=== PATIENT | male | born 1985 | race Hispanic/Latino ===

== ENCOUNTER → 2018-04-10 | Outpatient (CLI) | payer BC ==
[~2018-04-10] MED LIST: PROCARDIA XL90 MG PO
--- NOTE | 2018-04-10 17:57 | Diagnostic Imaging Report ---
EXAM: CT Abdomen and Pelvis WITHOUT contrast INDICATION: Renal colic. COMPARISON: 08/19/2013. TECHNIQUE: Abdomen and pelvis were scanned utilizing a multidetector helical scanner from the lung base to the pubic symphysis without administration of IV contrast. Absence of intravenous contrast decreases sensitivity for detection of focal lesions and vascular pathology. Coronal and sagittal reformations were obtained. Routine protocol was performed. IV CONTRAST: None. ORAL CONTRAST: Water RADIATION DOSE: Total DLP: 817.61 mGy*cm Estimated effective dose: (DLP x 0.015 x size factor) mSv COMPLICATIONS: None FINDINGS: LINES and TUBES: None. LOWER THORAX: Unremarkable HEPATOBILIARY: No focal hepatic lesions. No biliary ductal dilation. GALLBLADDER: No radio-opaque stones or sludge. No wall thickening. SPLEEN: No splenomegaly. PANCREAS: No focal masses or ductal dilatation. ADRENALS: No adrenal nodules KIDNEYS/URETERS: No hydronephrosis. No cystic or solid mass lesions. There is a 2 mm and a punctate calculi in the upper pole of the right kidney on image 61 series 2. There is a 5 x 9 mm obstructing calculus in the mid to distal right ureter on coronal image 57 resulting in mild right hydroureteronephrosis. There are no left renal calculi GI TRACT: No abnormal distention, wall thickening, or evidence of bowel obstruction. Appendix is surgically absent. PELVIC ORGANS/BLADDER: Unremarkable. LYMPH NODES: No lymphadenopathy. VESSELS: Unremarkable. PERITONEUM / RETROPERITONEUM: No free air or fluid. BONES: Small sclerotic lesions scattered throughout the pelvic bones consistent with bone islands. No acute osseous abnormality. SOFT TISSUES: Small fat-containing left inguinal hernia. IMPRESSION: 1. 9 mm mm obstructing calculus in the mid to distal right ureter resulting in mild right hydroureteronephrosis. Discussed with Dr. Sullivan at 5:50 PM on 02/08/18. 2. Punctate calculi in the upper pole of the right kidney. Signed by: Dr. Fidencio Merritt M.D. on 04/10/2018 5:54 PM
== END ==
LOC: CT 15:16
PROVIDERS: ATTEND Family Medicine
DX: N20.2 Calculus of kidney with calculus of ureter (principal)
CPT/HCPCS: 74176

== ENCOUNTER 2018-04-26 23:21 | Emergency (ER) | payer BC ==
[~2018-04-26] VITALS: Ht 188 cm; Wt 113.4 kg
[2018-04-26] MEDS ORDERED: ONDANSETRON HCL INJ 2 MG/ML VIAL IV STA (23:52)
[2018-04-26] MEDS ORDERED: HYDROMORPHONE 1MG/1ML INJ IV STA (23:52)
[2018-04-27] LABS: BASOPHILS # (AUTO) 0.1 (0.0-0.1); BASOPHILS % 0.6 % (0.0-1.0); EOSINOPHILS # (AUTO) 0.1 (0.0-0.4); EOSINOPHILS % 0.5 % (0.0-6.0); HEMATOCRIT 43.8 % (38.2-49.6); HEMOGLOBIN 15.3 g/dL (14.0-18.0); LYMPHOCYTES # (AUTO) 2.3 (1.0-3.2); LYMPHOCYTES % 13.1 % (18.0-39.1); MEAN CORPUSCULAR HEMOGLOBIN 30.3 pg (28-32); MEAN CORPUSCULAR HGB CONC 34.9 g/dL (31-35); MEAN CORPUSCULAR VOLUME 86.7 fL (81-99); MONOCYTES # (AUTO) 1.5 (0.2-0.8); MONOCYTES % 8.4 % (4.4-11.3); NEUTROPHILS # (AUTO) 13.3 (2.1-6.9); NEUTROPHILS % 77.1 % (38.7-80.0); PLATELET COUNT 300 x10e3/uL (140-360); RED BLOOD COUNT 5.05 x10e6/uL (4.3-5.7); RED CELL DISTRIBUTION WIDTH 12.3 % (11.7-14.4)
[2018-04-27] MEDS ORDERED: SODIUM CHLORIDE 0.9% 500ML 500 ML IV ONE
[2018-04-27 00:04] LABS: INR 1.02; PROTHROMBIN TIME 12.6 seconds (11.9-14.5)
[2018-04-27 00:05] LABS: PARTIAL THROMBOPLASTIN TIME 25.9 seconds (23.8-35.5)
[2018-04-27 00:14] LABS: ALBUMIN 4.8 g/dL (3.5-5.0); ALBUMIN/GLOBULIN RATIO 1.4 (0.8-2.0); ANION GAP 16.9 mmol/L (8-16); CALCIUM 9.6 mg/dL (8.4-10.2); CREATININE, SERUM 1.39 mg/dL (0.72-1.25); MAGNESIUM 1.9 MG/DL (1.3-2.1); POTASSIUM 3.9 mmol/L (3.5-5.1)
--- NOTE | 2018-04-27 00:48 | Diagnostic Imaging Report ---
EXAM: CT ABDOMEN AND PELVIS without IV CONTRAST INDICATION: Right flank pain COMPARISON: CT of the abdomen and pelvis April 10, 2018 TECHNIQUE: The abdomen and pelvis were scanned using a multidetector helical scanner. Coronal and sagittal reformations were obtained. Renal stone protocol performed. IV Contrast: None Oral Contrast: None CTDIvol has been reviewed. It is below the limits set by the Radiation Protocol Committee (RPC). FINDINGS: LOWER THORAX: No consolidations LIVER: No masses BILIARY: Normal gallbladder. No ductal dilation. SPLEEN: No masses PANCREAS: No masses ADRENALS: No nodules RIGHT KIDNEY: Stable position of 5x9 mm stone in the right mid ureter at the L4 level. Stable mild hydronephrosis. Interval increased perinephric fat stranding. Additional 1 and 2 mm stones in the superior pole. LEFT KIDNEY: No nephroureterolithiasis or hydronephrosis. GI TRACT: No wall thickening or obstruction. Appendectomy. VESSELS: None PERITONEUM/RETROPERITONEUM: No free air or fluid LYMPH NODES: No lymphadenopathy REPRODUCTIVE ORGANS: Normal BLADDER: Normal SOFT TISSUES: Normal BONES: No suspicious bone lesions. IMPRESSION: Persistent stone in the mid right ureter with stable mild hydroureteronephrosis. Slight interval increase in right perinephric fat stranding. Signed by: Dr. Karuna Heath M.D. on 04/27/2018 12:45 AM
[2018-04-27 02:01] LABS: BILIRUBIN,URINE NEGATIVE (NEGATIVE); CLARITY,URINE CLEAR (CLEAR); COLOR,URINE YELLOW (YELLOW); KETONES,URINE NEGATIVE (NEGATIVE); LEUKOCYTE ESTERASE ,URINE NEGATIVE (NEGATIVE); NITRITE,URINE NEGATIVE (NEGATIVE); PROTEIN,URINE DIPSTICK NEGATIVE (NEGATIVE); URINE UROBILINOGEN 0.2 mg/dL (0.2 - 1); WBC,URINE (MAN) 0-5 /HPF (0-5)
[2018-04-27 02:02] LABS: EPITHELIAL CELLS,URINE FEW /LPF
[2018-04-29] MEDS ORDERED: CARDIA PO (06:24)
== END 2018-04-27 02:26 | disposition home or self-care (01) ==
LOC: ER 23:21
DX: R10.9 Unspecified abdominal pain (principal); R11.0 Nausea; N20.1 Calculus of ureter
CPT/HCPCS: 36415; 74176; 80053; 81001; 83735; 85025; 85610; 85730; 87086; 96374; 99284; J1170; J2405; J7040

== ENCOUNTER → 2018-04-29 | Day surgery (SDC) | payer BC ==
[~2018-04-29] MED LIST changes: +CARDIA PO; +CARTIA XT300 MG PO; +CEFTRIAXONE SOD 1 GM VIAL ONE; +DEXAMETHASONE SOD PHOS INJ 4 MG/ML VIAL ONE; +FENTANYL CITRATE/PF 100MCG/2 ML INJ ONE; +IOPAMIDOL 300MG/ML 50ML INFUS..BTL IV ONE; +LIDOCAINE HCL 2% LOCAL INJ 5 ML SDV VIAL INJ ONE; +MIDAZOLAM HCL 2 MG/2 ML VIAL ONE; +ONDANSETRON HCL INJ 2 MG/ML VIAL ONE; +PROPOFOL IV EMULSION 10 MG/ML 20 ML VIAL ONE; +SEVOFLURANE INHAL SOLN 250 ML PEN BTL ONE
--- NOTE | 2018-04-29 08:20 | Diagnostic Imaging Report ---
Exam: Radiographs of the abdomen 2 views Comparison: CT Abdomen 04/27/18. Findings: An 8 mm calcification overlies the expected location of the right mid ureter. Punctate 1-2 mm stones overlie the right kidney, although partially obscured by overlying bowel gas. Phlebolith is present in the pelvis. There is a nonobstructive bowel gas pattern. There is no free intraperitoneal air. The bony structures are unremarkable. Impression: Similar appearance of right ureteral stone and right sided renal stones compared to CT on 04/27/18. Signed by: Dr. Karuna Díaz MD on 04/29/2018 8:17 AM
--- NOTE | 2018-06-18 14:58 | Operative Report ---
DATE OF PROCEDURE: April 29, 2018 PREOPERATIVE DIAGNOSES 1. Right ureterolithiasis. 2. Microhematuria. POSTOPERATIVE DIAGNOSES 1. Right ureterolithiasis. 2. Microhematuria. OPERATIONS PERFORMED 1. Cystourethroscopy with bilateral ureteral catheterization and retrograde ureteropyelography (separate procedure performed for the microscopic hematuria). 2. Interpretation retrograde ureteropyelography. 3. Supervision of fluoroscopy. No radiologist present. 4. Right ureteroscopy with Holmium laser lithotripsy and insertion of stent (separate procedure performed for the diagnosis of stone done with separate scope). 5. Radiological services for supervision and interpretation of ureteroscopy. ANESTHESIA: General. COMPLICATIONS: None. CLINICAL SUMMARY: Darvin Bell is a 33-year-old man who has right ureterolithiasis. He had renal colic that required an emergency room visit. The patient has right hydroureteronephrosis and has failed to pass his stone at stone passage trial. He also has a punctate left kidney stone and a small right kidney stone. He is brought to the operating room to manage his obstructing stone. He is aware of the risks of bleeding, infection, injury to adjacent structures, need for additional procedures, and elected to proceed. OPERATIVE PROCEDURE IN DETAIL: Informed consent was verified. Darvin Hall was properly identified and taken to the operating room and placed on the cystoscopy table in the supine position. Anesthesia was uneventfully begun. The patient was then carefully and gently repositioned in the dorsal lithotomy position with all pressure points well-padded. His genitalia were prepared and draped in the usual sterile fashion. The 22.5-Montenegrin cystoscope sheath with visual obturator in place was atraumatically and inserted in the patient's urethra and guided down the unremarkable urethra passed a normal sphincteric bed through the normal prostate bed and into the patient's bladder. Panendoscopy revealed normally positioned configured ureteral orifices. There were no tumors. No stones. No diverticula. No suspicious lesions were noted. A ureteral catheter was used to cannulate the left ureter and retrograde ureteropyelograms were performed. It was then inserted in the right ureter and retrograde ureteropyelograms were performed. A guidewire was then introduced into the right ureter and guided to the level of the patient's kidney. Semi-rigid ureteroscope was then inserted alongside the guidewire into the level of the stone. Holmium laser lithotripsy was performed in order to fragment the stone. Basket was then utilized to extract stone remnants. Under cystoscopic and fluoroscopic guidance, a right-sided indwelling ureteral stent was then placed. It was coiled in the patient's kidney, as well as the patient's bladder. The retaining suture was cut short. Interpretation of retrograde ureteropyelography. Contrast was instilled in a retrograde fashion bilaterally. On the left hand side, there were no tumors. I could not visualize the punctate left kidney stone. On the right hand side, there was hydroureteronephrosis down to the level of the stone. The stent was in good position. Coiled in the patient's kidney, as well as the patient's bladder at the end of the case. The patient's bladder was then drained. Cystoscope was withdrawn. Digital rectal examination revealed a 15 g prostate smooth and nonfluctuant and without any nodules. Patient was uneventfully reversed from anesthesia and taken to the recovery room in stable condition. There were no complications with the procedure. He tolerated the procedure well. Explicit postop instructions were given. Will plan on returning the patient back to the operating room in several weeks to remove his stent, perform a right ureteroscopy, and hopefully render the patient stone-free and stent-free. Job#: [id number] RI cc:JOSÉ LUIS HADDAD MD
--- OUTSIDE RECORDS SUMMARY | 2018-06-20 01:20 | XMS REPORT | Continuity of Care Document ---
Author Author [facility] Organization [facility] Address [address] [place] [address] Phone Unavailable Care Team Providers Care Online Communications Specialist Name Role Phone JOSÉ LUIS HADDAD PCP Insurance Providers Guarantor Darvin Bell Address [address] [place] [address] Email [email or web address] [facility] Policy Number [id number] Subscriber's Name Darvin Bell Relationship 18 Self / Same As Patient Group Number [id number] Group Name [employer] [facility] Effective Date 12 Advance Directives Directive Response Recorded Date/Time Does the patient have an advance directive? No 02/22/09 7:01pm If yes, is advance directive on file with [facility]? No 02/22/09 7:01pm If not on file with [facility] will patient provide a copy? No 02/29/12 5:33pm Problems No problem information available. Medications Current Home Medications Medication Dose Units Route Directions Days Qty Instructions Start Date Nifedipine (Procardia Xl) 90 Mg Tab.er.24 200 Mg Oral Rt Daily Social History Smoking Status Start Date Stop Date Never Smoker Hospital Discharge Instructions No hospital discharge instruction information available. Plan of Care Discharge Date 04/27/18 2:26am Disposition HOME, SELF-CARE Condition at Discharge Stable Instructions/Education Provided Back Pain Kidney Stones Forms Provided Work/School Excuse Prescriptions See Medication Section Referrals LILI BLANCA MD Address: [address] [place] [address] Additional Instructions/Education continue with your meds pain meds, and flomax. at home, NPO after midnight one Sunday got stent placement on Sunday. Functional Status No functional status information available. Allergies, Adverse Reactions, Alerts No known allergies. Immunizations No immunization information available. Vital Signs Acute Vital Signs Vital Response Date/Time Temperature (Fahrenheit) 98.5 degrees F (97.6 - 99.5) 04/27/2018 2:23am Height 6 ft 2 in 04/26/2018 11:40pm Weight 250 lb 04/26/2018 11:40pm Body Mass Index 32.1 kg/m^2 04/26/2018 11:40pm Results Laboratory Results Test Name Result Units Flags Reference Collection Date/Time Result Date/ Time Comments White Blood Count 17.28 x10e3/uL H 4.8-10.8 04/26/2018 11:45pm 2017 12:01am Red Blood Count 5.05 x10e6/uL 4.3-5.7 04/26/2018 11:45pm 04/27/2018 12: 01am Hemoglobin 15.3 g/dL 14.0-18.0 04/26/2018 11:45pm 04/27/2018 12:01am Hematocrit 43.8 % 38.2-49.6 04/26/2018 11:45pm 04/27/2018 12:01am Mean Corpuscular Volume 86.7 fL 81-99 04/26/2018 11:45pm 04/27/2018 12: 01am Mean Corpuscular Hemoglobin 30.3 pg 28-32 04/26/2018 11:45pm 2017 12:01am Mean Corpuscular Hemoglobin Concent 34.9 g/dL 31-35 04/26/2018 11:45pm 04/27/2018 12:01am Red Cell Distribution Width 12.3 % 11.7-14.4 04/26/2018 11:45pm 2017 12:01am Platelet Count 300 x10e3/uL 140-360 04/26/2018 11:45pm 04/27/2018 12: 01am Neutrophils (%) (Auto) 77.1 % 38.7-80.0 04/26/2018 11:45pm 04/27/2018 12:01am Lymphocytes (%) (Auto) 13.1 % L 18.0-39.1 04/26/2018 11:45pm 04/27/2018 12:01am Monocytes (%) (Auto) 8.4 % 4.4-11.3 04/26/2018 11:45pm 04/27/2018 12: 01am Eosinophils (%) (Auto) 0.5 % 0.0-6.0 04/26/2018 11:45pm 04/27/2018 12: 01am Basophils (%) (Auto) 0.6 % 0.0-1.0 04/26/2018 11:45pm 04/27/2018 12: 01am IM GRANULOCYTES % 0.3 % 0.0-1.0 04/26/2018 11:45pm 04/27/2018 12:01am Neutrophils # (Auto) 13.3 H 2.1-6.9 04/26/2018 11:45pm 04/27/2018 12: 01am Lymphocytes # (Auto) 2.3 1.0-3.2 04/26/2018 11:45pm 04/27/2018 12: 01am Monocytes # (Auto) 1.5 H 0.2-0.8 04/26/2018 11:45pm 04/27/2018 12: 01am Eosinophils # (Auto) 0.1 0.0-0.4 04/26/2018 11:45pm 04/27/2018 12: 01am Basophils # (Auto) 0.1 0.0-0.1 04/26/2018 11:45pm 04/27/2018 12:01am Absolute Immature Granulocyte (auto 0.06 x10e3/uL 0-0.1 04/26/2018 11: 45pm 04/27/2018 12:01am Prothrombin Time 12.6 seconds 11.9-14.5 04/26/2018 11:45pm 04/27/2018 12:23am Prothromb Time International Ratio 1.02 04/26/2018 11:45pm 2017 12:23am Oral Anticoagulant Therapy INR Values: 1. Low Intensity Therapy 1.5 - 2.0 2. Moderate Intensity Therapy 2.0 - 3.0 3. High Intensity Therapy(1) 2.5 - 3.5 4. High Intensity Therapy(2) 3.0 - 4.0 5. Panic Value INR > 5.0 Activated Partial Thromboplast Time 25.9 seconds 23.8-35.5 04/26/2018 11 :45pm 04/27/2018 12:23am Urine Color YELLOW YELLOW 04/27/2018 1:45am 04/27/2018 2:02am Urine Clarity CLEAR CLEAR 04/27/2018 1:45am 04/27/2018 2:02am Urine Specific [place] 1.020 1.010-1.025 04/27/2018 1:45am 2017 2:02am Urine pH 6 5 - 7 04/27/2018 1:45am 04/27/2018 2:02am Urine Leukocyte Esterase NEGATIVE NEGATIVE 04/27/2018 1:45am 2017 2:02am Urine Nitrite NEGATIVE NEGATIVE 04/27/2018 1:45am 04/27/2018 2:02am Urine Protein NEGATIVE NEGATIVE 04/27/2018 1:45am 04/27/2018 2:02am Urine Glucose (UA) NEGATIVE NEGATIVE 04/27/2018 1:45am 04/27/2018 2: 02am Urine Ketones NEGATIVE NEGATIVE 04/27/2018 1:45am 04/27/2018 2:02am Urine Urobilinogen 0.2 mg/dL 0.2 - 1 04/27/2018 1:45am 04/27/2018 2: 02am Urine Bilirubin NEGATIVE NEGATIVE 04/27/2018 1:45am 04/27/2018 2: 02am Urine Blood 2+ H NEGATIVE 04/27/2018 1:45am 04/27/2018 2:02am Urine WBC 0-5 /HPF 0-5 04/27/2018 1:45am 04/27/2018 2:02am Urine RBC 6-10 /HPF H 0-5 04/27/2018 1:45am 04/27/2018 2:02am Urine Bacteria NONE /HPF NONE 04/27/2018 1:45am 04/27/2018 2:02am Urine Epithelial Cells FEW /LPF NONE 04/27/2018 1:45am 04/27/2018 2: 02am Sodium Level 142 mmol/L 136-145 04/26/2018 11:45pm 04/27/2018 12:24am Potassium Level 3.9 mmol/L 3.5-5.1 04/26/2018 11:45pm 04/27/2018 12: 24am Chloride Level 106 mmol/L 98-107 04/26/2018 11:45pm 04/27/2018 12:24am Carbon Dioxide Level 23 mmol/L 22-29 04/26/2018 11:45pm 04/27/2018 12: 24am Anion Gap 16.9 mmol/L H 8-16 04/26/2018 11:45pm 04/27/2018 12:24am Blood Urea Nitrogen 16 mg/dL 7-26 04/26/2018 11:45pm 04/27/2018 12: 24am Creatinine 1.39 mg/dL H 0.72-1.25 04/26/2018 11:45pm 04/27/2018 12:24am BUN/Creatinine Ratio 12 6-25 04/26/2018 11:45pm 04/27/2018 12:24am Estimat Glomerular Filtration Rate 59 ML/MIN L 60- 04/26/2018 11:45pm 12:24am Ranges were taken from the National Kidney Disease Education Program and the National Kidney Foundation literature. Reference ranges: 60 or greater: Normal 16-59 (for 3 consecutive months): Chronic kidney disease 15 or less: Kidney failure Glucose Level 128 mg/dL H 74-118 04/26/2018 11:45pm 04/27/2018 12:24am Calcium Level 9.6 mg/dL 8.4-10.2 04/26/2018 11:45pm 04/27/2018 12:24am Magnesium Level 1.9 MG/DL 1.3-2.1 04/26/2018 11:45pm 04/27/2018 12: 24am Total Bilirubin 0.7 mg/dL 0.2-1.2 04/26/2018 11:45pm 04/27/2018 12: 24am Aspartate Amino Transf (AST/SGOT) 27 IU/L 5-34 04/26/2018 11:45pm 04/27 12:24am Alanine Aminotransferase (ALT/SGPT) 43 IU/L 0-55 04/26/2018 11:45pm 07/2018 12:24am Total Protein 8.2 g/dL H 6.5-8.1 04/26/2018 11:45pm 04/27/2018 12:24am Albumin 4.8 g/dL 3.5-5.0 04/26/2018 11:45pm 04/27/2018 12:24am Globulin 3.4 g/dL 2.3-3.5 04/26/2018 11:45pm 04/27/2018 12:24am Albumin/Globulin Ratio 1.4 0.8-2.0 04/26/2018 11:45pm 04/27/2018 12: 24am Alkaline Phosphatase 122 IU/L 40-150 04/26/2018 11:45pm 04/27/2018 12: 24am Procedures Procedure Status Date Provider(s) CT of abdomen and pelvis without contrast Active 04/10/[address] of abdomen and pelvis without contrast Active 04/27/18 SEFERINO HARTMAN MD Encounters Encounter Location Arrival/Admit Date Discharge/Depart Date Attending Provider Registered Emergency Room [facility] 04/26/18 11:21pm SEFERINO HARTMAN MD Registered Clinic [facility] 04/10/18 3:16pm JOSÉ LUIS HADDAD
== END | disposition home or self-care (01) ==
LOC: OR 05:12
PROVIDERS: ATTEND Urology
DX: N20.1 Calculus of ureter (principal); N20.0 Calculus of kidney; N13.30 Unspecified hydronephrosis; I10 Essential (primary) hypertension; Z01.810 Encounter for preprocedural cardiovascular examination; Z01.812 Encounter for preprocedural laboratory examination; Z68.32 Body mass index [BMI] 32.0-32.9, adult
CPT/HCPCS: 52356; 74420; 83970 ×2; 88300; 93005; C2617; J0696; J1100; J2001; J2250; J2405; Q9967; 74018

== ENCOUNTER 2018-06-14 14:24 | Observation (INO) | payer BC ==
[~2018-06-14] VITALS: Ht 188 cm; Wt 110.2 kg
[~2018-06-14 14:24] MED LIST changes: -CEFTRIAXONE SOD 1 GM VIAL ONE; -DEXAMETHASONE SOD PHOS INJ 4 MG/ML VIAL IV ONE; -FENTANYL CITRATE/PF 100MCG/2 ML INJ ONE; -IOPAMIDOL 610MG/1ML 300 MG/ML VIAL IV ONE; -LIDOCAINE HCL 2% LOCAL INJ 5 ML SDV VIAL INJ ONE; -MIDAZOLAM HCL 2 MG/2 ML VIAL ONE; -ONDANSETRON HCL INJ 2 MG/ML VIAL IV ONE; -PROPOFOL IV EMULSION 10 MG/ML 20 ML VIAL IV ONE; -SEVOFLURANE INHAL SOLN 250 ML PEN BTL INH ONE
[2018-06-14] MEDS ORDERED: ONDANSETRON HCL INJ 2 MG/ML VIAL IV STA (14:55)
[2018-06-14] MEDS ORDERED: SODIUM CHLORIDE 0.9% 1000ML 1,000 ML IV SCH (15:00)
[2018-06-14] MEDS ORDERED: MORPHINE SULFATE 5 MG/ML VIAL IV ONE (15:00)
[2018-06-14 15:02] LABS: CLARITY,URINE CLOUDY (CLEAR); COLOR,URINE AMBER (YELLOW)
[2018-06-14 15:03] LABS: BILIRUBIN,URINE NEGATIVE (NEGATIVE); KETONES,URINE NEGATIVE (NEGATIVE); LEUKOCYTE ESTERASE ,URINE NEGATIVE (NEGATIVE); NITRITE,URINE NEGATIVE (NEGATIVE); PROTEIN,URINE DIPSTICK 2+ (NEGATIVE); URINE UROBILINOGEN 0.2 mg/dL (0.2 - 1)
[2018-06-14] MEDS ORDERED: MORPHINE SULFATE 2 MG/ML SYR IV NR (15:04)
[2018-06-14 15:14] LABS: RBC,URINE >50 /HPF (0-5)
[2018-06-14 15:19] LABS: BASOPHILS % 0.4 % (0.0-1.0); HEMATOCRIT 42.9 % (38.2-49.6); HEMOGLOBIN 14.7 g/dL (14.0-18.0); LYMPHOCYTES # (AUTO) 0.5 (1.0-3.2); LYMPHOCYTES % 4.8 % (18.0-39.1); MEAN CORPUSCULAR HEMOGLOBIN 30.2 pg (28-32); MEAN CORPUSCULAR HGB CONC 34.3 g/dL (31-35); MEAN CORPUSCULAR VOLUME 88.1 fL (81-99); MONOCYTES # (AUTO) 0.1 (0.2-0.8); MONOCYTES % 1.1 % (4.4-11.3); NEUTROPHILS # (AUTO) 10.6 (2.1-6.9); NEUTROPHILS % 93.3 % (38.7-80.0); PLATELET COUNT 327 x10e3/uL (140-360); RED BLOOD COUNT 4.87 x10e6/uL (4.3-5.7); RED CELL DISTRIBUTION WIDTH 11.9 % (11.7-14.4)
--- NOTE | 2018-06-14 15:29 | Diagnostic Imaging Report ---
Exam: Abdominal film Clinical History: Pain after stent removal Comparison: None. DISCUSSION: Prominent loop of small bowel within the right mid abdomen may reflect ileus. No dilated, air-filled loops of bowel. Punctate calcification right L3-L4 not previously seen. Prior right stent removal. IMPRESSION: Prominent loop of small bowel within the right mid abdomen may reflect ileus. Punctate calcification right of L3-L4 not previously seen. However, appears slightly lateral to the position of the right ureteral stent. Signed by: Dr. Jesus Rosario M.D. on 06/14/2018 3:26 PM
[2018-06-14 15:37] LABS: ALANINE AMINOTRANSFERASE 80 IU/L (0-55); ALBUMIN 4.7 g/dL (3.5-5.0); ALBUMIN/GLOBULIN RATIO 1.2 (0.8-2.0); ALKALINE PHOSPHATASE 137 IU/L (40-150); ANION GAP 16.2 mmol/L (8-16); BLOOD UREA NITROGEN 15 mg/dL (7-26); BUN/CREATININE RATIO 15 (6-25); CARBON DIOXIDE 24 mmol/L (22-29); CHLORIDE 103 mmol/L (98-107); CREATININE, SERUM 1.03 mg/dL (0.72-1.25); EST GLOMERULAR FILTRATION RATE > 60 ML/MIN (60-); GLUCOSE 135 mg/dL (74-118); POTASSIUM 4.2 mmol/L (3.5-5.1); SODIUM 139 mmol/L (136-145)
[2018-06-14] MEDS ORDERED: MORPHINE SULFATE 2 MG/ML SYR IV PRN (16:15)
[2018-06-14] MEDS ORDERED: ONDANSETRON HCL INJ 2 MG/ML VIAL IV PRN (16:15)
[2018-06-14] MEDS ORDERED: ACETAMINOPHEN/CODEINE 300MG - 30MG TAB PO PRN (18:00)
[2018-06-14] MEDS ORDERED: HYDROMORPHONE 2MG/ML 2 MG/ML ML IV NR (18:15)
[2018-06-14] MEDS: SODIUM CHLORIDE 0.9% 1000ML 1,000 ML IV SCH (19:34)
[2018-06-14] MEDS ORDERED: DILTIAZEM HCL ER 120 MG CAPCR PO SCH (21:00)
[2018-06-14] MEDS ORDERED: DILTIAZEM HCL 180 MG CAP ER PO SCH (21:00)
[2018-06-14 23:35] VITALS: BP 121/62
[2018-06-14 23:45] VITALS: BP 121/62
[2018-06-15] MEDS: SODIUM CHLORIDE 0.9% 1000ML 1,000 ML IV SCH (04:35)
[2018-06-15 05:15] VITALS: BP 118/56
--- NOTE | 2018-06-15 06:41 | Diagnostic Imaging Report ---
EXAM: ABDOMEN-1VIEW (KUB), supine INDICATION: Kidney stones COMPARISON: None FINDINGS: LINES/TUBES: None BOWEL PATTERN: No evidence for obstruction. SOFT TISSUES: No abnormal calcifications. LUNG BASES: Not included BONES: No acute findings. IMPRESSION: No radiographic evidence of a renal stone. Signed by: Dr. Karuna Heath M.D. on 06/15/2018 6:38 AM
[2018-06-15 08:05] VITALS: BP 122/56
[2018-06-15 12:12] VITALS: BP 152/89
--- NOTE | 2018-06-15 13:23 | Discharge Summary ---
PRIMARY CARE DOCTOR: Dr. José Luis Haddad. FINAL DIAGNOSIS: Nephrolithiasis. SECONDARY DIAGNOSIS: Hypertension. CONSULTANTS: None. PROCEDURES/STUDIES PERFORMED: KUB. HISTORY: Per H and P. HOSPITAL COURSE: Patient was admitted; however, he thinks in the emergency room, he passed the stone. Patient has been pain free on the date of discharge. KUB was done, which did not show any stone. At this time, we will discharge the patient if it is okay with urology. Patient was seen and examined today. CONDITION ON DISCHARGE: Stable. DISCHARGE MEDICATIONS: Please see medication reconciliation form. Job#: [id number] LPA cc:DR. JOSÉ LUIS HADDAD
== END 2018-06-15 14:04 | disposition home or self-care (01) ==
LOC: ER 14:24 → ERHOLD 16:31 → IMCU 23:15
PROVIDERS: ADMIT Internal Medicine; ATTEND Internal Medicine
DX: N20.0 Calculus of kidney (principal); I10 Essential (primary) hypertension; Z87.442 Personal history of urinary calculi; R31.9 Hematuria, unspecified
CPT/HCPCS: 36415; 74018 ×2; 80053; 81001; 85025; 99284; G0378 ×2; J1170; J2270; J2405; J7030 ×2

== ENCOUNTER → 2018-06-14 | Day surgery (SDC) | payer BC ==
[~2018-06-14] MED LIST changes: +DEXAMETHASONE SOD PHOS INJ 4 MG/ML VIAL IV ONE; -DEXAMETHASONE SOD PHOS INJ 4 MG/ML VIAL ONE; -IOPAMIDOL 300MG/ML 50ML INFUS..BTL IV ONE; +IOPAMIDOL 610MG/1ML 300 MG/ML VIAL IV ONE; +ONDANSETRON HCL INJ 2 MG/ML VIAL IV ONE; -ONDANSETRON HCL INJ 2 MG/ML VIAL ONE; +PROPOFOL IV EMULSION 10 MG/ML 20 ML VIAL IV ONE; -PROPOFOL IV EMULSION 10 MG/ML 20 ML VIAL ONE; +SEVOFLURANE INHAL SOLN 250 ML PEN BTL INH ONE; -SEVOFLURANE INHAL SOLN 250 ML PEN BTL ONE
--- NOTE | 2018-06-14 07:27 | Diagnostic Imaging Report ---
EXAM: ABDOMEN-1VIEW (KUB) DATE: 06/14/2018 6:02 AM INDICATION: Preop kidney stone COMPARISON: 04/29/2018 FINDINGS: There is been interval placement of a right ureteral stent. No definite calculus identified along course of stent. Nonspecific loops of small bowel present left upper quadrant. IMPRESSION: Right ureteral stent. Signed by: Dr. Jay Simeon MD on 06/14/2018 7:24 AM
[2018-06-14 09:35] VITALS: BP 124/79
--- NOTE | 2018-07-29 23:22 | Operative Report ---
DATE OF PROCEDURE: June 14, 2018 PREOPERATIVE DIAGNOSES: 1. Right ureterolithiasis. 2. Right indwelling ureteral stent. POSTOPERATIVE DIAGNOSES: 1. Right ureterolithiasis. 2. Right indwelling ureteral stent. OPERATIONS PERFORMED: Note these were all staged procedures as part of a multistage, multistep process of managing the patient's urolithiasis. 1. Cystourethroscopy with complicated removal of indwelling ureteral stent (separate procedure performed with separate scope for the diagnosis of stent). 2. Right ureteroscopy with stone manipulation and extraction (separate procedure performed for the right ureterolithiasis). 3. Interpretation of retrograde ureteropyelography. 4. Interpretation of radiological services for supervision of ureteroscopy. 5. Supervision of fluoroscopy, no radiologist present. ANESTHESIA: General. COMPLICATIONS: None. CLINICAL SUMMARY: Darvin Bell is a 33-year-old man who underwent ureteral stenting with right ureteroscopy and holmium laser lithotripsy in April of this year. The patient stone burden came back as calcium oxalate monohydrate 100%. The patient is brought to the operating room today to remove his stent and evaluate and manage any residual stones. He is aware of the risks of bleeding, infection, injury to adjacent structures, need for additional procedures, and elected to proceed. OPERATIVE PROCEDURE IN DETAIL: Informed consent was verified. Darvin Bell was properly identified, taken to the operating room, and placed on the cystoscopy table in supine position. Anesthesia was uneventfully begun. The patient was then carefully and gently repositioned in the dorsal lithotomy position with all pressure points well padded. His genitalia were prepared and draped in usual sterile fashion. The 22.5-K[place] cystoscope sheath with the visual obturator in place was atraumatically inserted into patient's urethra. It was guided down the unremarkable urethra, through the normal sphincteric region, through the normal prostate bed, and into the patient's bladder which showed no lesions, no stones, no diverticula, no suspicious areas. A stent was noted to be emerging from the right ureteral orifice and was mildly encrusted. A guidewire was then placed alongside the stent and guided to the level of the patient's kidney. The stent was then grasped, completely removed, and discarded. Semirigid ureteroscope was then placed alongside the guidewire into the right ureter. We identified 1 stone fragment. The stone fragment was grasped with nitinol tipless basket and extracted atraumatically. Flexile ureteroscope was then placed over the guidewire and guided to the level of the patient's kidney. Careful panendoscopy revealed Cornell's plaques throughout. There were no suspicious mucosal lesions. There were no stones. The ureteroscope was carefully and slowly extracted thus thoroughly examining the ureter. Interpretation of retrograde ureteropyelography: Contrast was injected in retrograde fashion via the ureteroscope. There was some chronic-appearing fullness of the right system. There were no filling defects. Unobstructed drainage was observed fluoroscopically. The patient's bladder was then drained. Cystoscope was withdrawn. Digital rectal examination revealed a 15 g prostate, smooth, non-fluctuant, and without any nodules; and the patient was uneventfully reversed from anesthesia and taken to recovery room in stable condition. There were no complications to the procedure. He tolerated the procedure well. Plans will be to follow the patient up in the office and of course will proceed with metabolic stone workup as well as ongoing urological followup as we proceed with the stone prevention regimen. Job#: [id number]
== END | disposition home or self-care (01) ==
LOC: OR 05:23
PROVIDERS: ATTEND Urology
DX: N20.1 Calculus of ureter (principal); Z46.6 Encounter for fitting and adjustment of urinary device; N28.89 Other specified disorders of kidney and ureter; I10 Essential (primary) hypertension
CPT/HCPCS: 52352; 74420; 88300; C1758; J0696; J1100; J2001; J2250; J2405; Q9967; 74018

== ENCOUNTER 2024-10-14 06:44 | Emergency (ER) | payer BC ==
[~2024-10-14] VITALS: Ht 182.9 cm; Wt 120.4 kg
[2024-10-14] MEDS: BACITRACIN ZINC 0.9GM TP ONE (08:15)
[2024-10-14] MEDS ORDERED: CIPRO500 MG PO (11:28)
[2024-10-14] MEDS: LEVOFLOXACIN 500MG/D5W 100ML 100 ML IV ONE (11:34)
[2024-10-14 11:35] VITALS: PULSE 90; RESP 18; TEMP 98.5; O2SAT 97
== END 2024-10-14 12:02 | disposition home or self-care (01) ==
LOC: FSED 07:08
DX: R04.0 Epistaxis (principal); S02.2XXA Fracture of nasal bones, initial encounter for closed fracture; W20.8XXA Other cause of strike by thrown, projected or falling object, initial encounter; Y92.89 Other specified places as the place of occurrence of the external cause; I10 Essential (primary) hypertension; Z87.442 Personal history of urinary calculi
CPT/HCPCS: 30901; 70486; 80053; 85025; 85610; 99283; J1956